=== PATIENT | male | born 1975 | race Caucasian/White ===

== ENCOUNTER 2017-10-25 16:15 | Outpatient (CLI) | payer OTHER ==
--- NOTE | 2017-10-25 17:08 | RAD ---
THREE VIEWS LEFT FOOT: Date: 10-25-17 History: Left foot pain for the past two weeks. FINDINGS: There is no evidence of a fracture, dislocation, or other osseous abnormality. IMPRESSION: 1. No acute osseous abnormality of the left foot. POS: CHET
== END 2017-10-25 16:16 | disposition home or self-care (01) ==
LOC: SCSRAD 16:15
PROVIDERS: ATTEND Family Medicine
DX: M79.672 Pain in left foot (principal)

== ENCOUNTER 2017-11-21 07:33 | Emergency (ER) | payer OTHER ==
[2017-11-21] MEDS ORDERED: Dexamethasone 20 MG/5 ML VIAL ONE (08:07)
== END 2017-11-21 08:29 | disposition home or self-care (01) ==
LOC: SCSER 07:33
DX: B34.9 Viral infection, unspecified (principal); F17.210 Nicotine dependence, cigarettes, uncomplicated
CPT/HCPCS: 87081; 87430; 96372; J1100

== ENCOUNTER 2020-07-08 13:29 | Outpatient (CLI) | payer OTHER ==
[2020-07-09 16:21] LABS: SARS-CoV-2 MS2 Positive; SARS-CoV-2 N Gene Negative; SARS-CoV-2 S Gene Negative; SARS-CoV-2 by NAA Not Detected (NotDetected); SARS-CoV-2 orf1ab Negative
== END 2020-07-08 13:30 | disposition home or self-care (01) ==
LOC: LABBT 13:29
PROVIDERS: ATTEND Family Medicine
DX: Z20.828 Contact with and (suspected) exposure to other viral communicable diseases (principal)
CPT/HCPCS: 87635; U0003

== ENCOUNTER 2020-07-12 11:24 | Day surgery (SDC) | payer OTHER ==
[2020-07-11 11:49] VITALS: BMI 40.1
[2020-07-12] MEDS ORDERED: Midazolam HCl 2 mg/2 ml Vial ONE ×2 (12:56→13:05)
--- NOTE | 2020-07-12 13:17 | CT ---
CT ABDOMEN WITH AND WITHOUT IV CONTRAST 07/12/2020 CLINICAL INFORMATION: Primary cancer of left kidney. Partial left nephrectomy. COMPARISON: None. Technique: Multiple contiguous axial CT images are obtained through the abdomen and pelvis with IV contrast. Cor onal reformatted images are provided. FINDINGS: Lower Chest: No pulmonary nodule or mass is seen either lung base. Lung bases are clear. Vessels: Abdominal aorta is normal in caliber. Abdomen: Portal vein:Patent Gallbladder: Within normal limits for CT imaging. Liver: within normal limits. Spleen: within normal limits. Pancreas: within normal limits. Adrenals: within normal limits. Kidneys: Postoperative changes midportion left kidney are seen. No enhancing renal mass is seen. Righ t kidney has a normal appearance. There is no hydronephrosis, but there is mild prominence of the superior pole left renal collecting system. No renal calculus is identified.. Bowel: Normal caliber. Appendix: The appendix is visualized and normal in caliber. Peritoneum: No ascites or free air; no fluid collection. Mesentery and Retroperitoneum: There is mild haziness/Nimisha appearance of the central mesentery. No e nlarged lymph nodes are seen, and no adjacent bowel wall thickening is appreciated. 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 The appendix is visualized and normal in caliber. Abdominal Wall: within normal limits. Bones: Bilateral pars defects are seen at L5 with grade 1 anterolisthesis of L5 on S1 measuring 9 mm. IMPRESSION: 1. Postoperative changes left kidney without findings to suggest residual or recurrent neoplastic pro cess. 2. Haziness/Nimisha appearance of the central mesentery which is overall nonspecific. There is no adjac ent bowel wall thickening or enlarged lymph nodes seen by CT size criteria. 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 3. Spondylolisthesis lumbosacral junction.
--- NOTE | 2020-07-12 14:39 | MRI ---
MRI OF THE LEFT KNEE PERFORMED WITHOUT CONTRAST ENHANCEMENT: 07/12/20 HISTORY: Left knee pain. There is mucoid degeneration of the ACL. Some ACL cyst formation developing proximally. Posterior cru ciate ligament is intact. The lateral meniscus shows a fairly normal shape in appearance. On the medial side there is some unde rsurface irregularity at the meniscal root which would suggest a partial root tear. There is also mil d meniscal subluxation of the body of the meniscus and a flap type tear at the posterior horn and bod y junction region. The medial and lateral collateral ligaments and iliotibial band regions are unremarkable. There is a full thickness area of fissuring of the medial facet of the patella. There is developing d elamination along the subchondral bony plate associated at this area of fissure. The medial and later al patellar retinaculum and quadriceps and patellar tendons are normal. IMPRESSION: 1. Flap type tear involving the posterior horn/body junction of the medial meniscus. In addition , the root of the meniscus appears thin with undersurface irregularity suggesting a partial tear. 2. Mucoid degeneration of the ACL with ACL cyst developing in the proximal ACL. 3. Full thickness fissuring of the medial facet of the patella with delamination. POS: BAUDILIO
--- NOTE | 2020-07-14 08:57 | EKG ---
Test Reason : PREOP FOR MRI Blood Pressure : / mmHG Vent. Rate : 058 BPM Atrial Rate : 058 BPM P-R Int : 144 ms QRS Dur : 090 ms QT Int : 390 ms P-R-T Axes : 008 079 028 degrees QTc Int : 382 ms Sinus bradycardia Otherwise normal ECG No previous ECGs available Confirmed by DR. Sara CHANEL ([id number]) on 07/14/2020 8:56:54 AM Referred By: GONZALO Confirmed By:DR. Sara CHANEL
== END 2020-07-12 14:00 | disposition home or self-care (01) ==
LOC: SDC/OP 11:24
PROVIDERS: ATTEND Family Medicine
DX: S83.242A Other tear of medial meniscus, current injury, left knee, initial encounter (principal); K65.4 Sclerosing mesenteritis; M43.17 Spondylolisthesis, lumbosacral region; I10 Essential (primary) hypertension; G47.33 Obstructive sleep apnea (adult) (pediatric); F41.9 Anxiety disorder, unspecified; F32.9 Major depressive disorder, single episode, unspecified; K21.9 Gastro-esophageal reflux disease without esophagitis; F17.210 Nicotine dependence, cigarettes, uncomplicated; Z79.899 Other long term (current) drug therapy; Z85.528 Personal history of other malignant neoplasm of kidney; Z88.5 Allergy status to narcotic agent; Z88.8 Allergy status to other drugs, medicaments and biological substances
CPT/HCPCS: 74170; 93005; 93010; J2250